=== PATIENT | female | born 1945 | race Caucasian/White ===

== ENCOUNTER 2016-06-17 09:00 | Inpatient (IN) | payer MEDICARE, OTHER ==
[~2016-06-17] VITALS: Ht 162.6 cm; Wt 78.7 kg
--- NOTE | ~2016-06-17 | OR ---
PATIENT'S NAME: MARQUEZ KENDRICK [facility] AGE: 70 Y [address] ROOM: [place] [address] LOCATION: [facility] ADMIT DATE: 06/25/2016 OR/Procedure Report DISCHARGE DATE: FAMILY PHYSICIAN: Linda Rogers APRN ATTENDING PHYSICIAN: TAMIR LEE SURGEON: Tamir Lee MD MEDICAL LABORATORY TECHNICIAN: 1. Omega Barrera CST/SANDRO. 2. Tamir Stevenson. DATE OF PROCEDURE: 06/25/2016 PREOPERATIVE DIAGNOSIS: Left shoulder degenerative joint disease. POSTOPERATIVE DIAGNOSES: 1. Left shoulder degenerative joint disease. 2. Biceps tenosynovitis. PROCEDURES PERFORMED: 1. Left total shoulder arthroplasty. 2. Left shoulder biceps tenodesis. ANESTHESIA: General endotracheal anesthesia plus subcutaneous and periarticular local anesthesia (Exparel and Marcaine with epinephrine). DRAINS: None. SPECIMENS: None. COMPLICATIONS: None. ESTIMATED BLOOD LOSS: Less than 100 mL. IMPLANTS: Biomet JuggerKnot suture anchor x1. Biomet comprehensive standard convertible uncemented glenoid baseplate with 4.75 mm peripheral locking screws x2 and 6.5 mm central screw x1. Standard E1 convertible glenoid polyethylene liner. Biomet comprehensive size 11 mm x 83 mm uncemented humeral component with 46 mm x 18 mm humeral head with 53 mm radius of curvature and standard humeral head taper adapter. INDICATION FOR PROCEDURE: Ms. Kendrick is a 70-year-old female presenting with severe left shoulder glenohumeral degenerative joint disease and associated severely compromised activities of daily living. She has decided to proceed with left total shoulder arthroplasty after having been thoroughly counseled regarding risks, benefits, limitations, and alternatives. We have specifically reviewed risks and implications of infection, neurovascular complications, stiffness, instability, blood transfusion risks, wear, PATIENT'S NAME: MARQUEZ KENDRICK [facility] AGE: 70 Y [address] ROOM: [place] [address] LOCATION: [facility] ADMIT DATE: 06/25/2016 OR/Procedure Report DISCHARGE DATE: FAMILY PHYSICIAN: Linda Rogers APRN ATTENDING PHYSICIAN: TAMIR LEE loosening, persistent pain, and potential need for revision. Informed consent granted. DESCRIPTION OF PROCEDURE: The patient was placed in a modified beachchair position after administration of general endotracheal anesthesia and prophylactic antibiotics. The left shoulder and left upper extremity were prepped and draped with vigilant sterile technique. Examination under anesthesia demonstrated no active skin lesions or masses. There was no instability. Passive forward elevation was limited to 110 degrees. Passive external rotation was limited to 20 degrees. The left shoulder was approached through a standard deltopectoral incision. Subcutaneous tissues were infiltrated with Marcaine with epinephrine. Subcutaneous tissues and periarticular tissues were infiltrated with Exparel prior to wound closure. The deltopectoral interval was identified and was bluntly developed. The cephalic vein was identified and was mobilized laterally with the deltoid and vigilantly protected throughout the entire case. The axillary nerve was identified and was vigilantly protected throughout the entire case. The outer surface of the rotator cuff was pristine. There was a large amount of fluid within the bicipital groove. The bicipital groove was longitudinally exposed with electrocautery. A large amount of benign-appearing translucent synovial fluid decompressed itself through the biceps tendon sheath. There was significant proliferative bicipital tenosynovitis. The biceps was divided at the proximal aspect of the intertubercular groove and tagged for later tenodesis. It should be noted that the tenodesis was accomplished with a 4- strand JuggerKnot suture anchor using locking stitches immediately prior to impacting the final humeral component. There was a moderate-sized osteophyte extending laterally from the medial aspect of the intertubercular groove which was clearly impinging on the biceps tendon. The subscapularis tendon was divided longitudinally with the anterior capsule 1 cm medial to its insertion and tagged with #1 Ethibond for later repair. There was a 1 cm osteophyte projecting inferiorly from the humeral head. There were smaller osteophytes posteriorly and anteroinferiorly. These were all removed. There was full-thickness loss of articular cartilage and multiple small subcortical cysts throughout the glenoid and the humeral head. The humeral head resection was performed with an oscillating saw at 30 degrees of retroversion. The humeral canal was reamed by hand up to a size 11 with tapered conical reamers. The size 11 reamer tightly engaged the endosteal cortex of the proximal humerus. The humerus was subsequently broached up to a size 11. The size 11 broach obtained excellent axial and rotational PATIENT'S NAME: MARQUEZ KENDRICK [facility] AGE: 70 Y [address] ROOM: [place] [address] LOCATION: [facility] ADMIT DATE: 06/25/2016 OR/Procedure Report DISCHARGE DATE: FAMILY PHYSICIAN: Linda Rogers APRN ATTENDING PHYSICIAN: TAMIR LEE. Circumferential glenoid exposure was obtained. Remnants of the glenoid labrum were sharply excised. A central guidewire was placed, and the glenoid was reamed over the guidewire. There was no perforation. The final glenoid baseplate was impacted into position and obtained an excellent press fit. Supplemental fixation was achieved with 2 peripheral locking screws and a central screw. The peripheral locking screws obtained excellent purchase. The central screw obtained mediocre purchase. The glenoid baseplate was thoroughly irrigated and cleansed prior to impacting the glenoid polyethylene into position. Circumferential palpation of the glenoid polyethylene and glenoid baseplate confirmed complete stable seating of the polyethylene. Trial reductions were performed. The above-specified construct restored appropriate soft tissue tension, stability, range of motion, and humeral height. The final humeral component was impacted into position and obtained excellent axial and rotational stability. The trunnion was thoroughly dried, and the humeral head was impacted into position. A final reduction was performed. Excellent stability and range of motion and appropriate humeral height were once again confirmed. The entire incision and entire joint space were thoroughly irrigated with bacteriostatic pulsatile saline lavage at this point as well as several times throughout the case. The subscapularis tendon was repaired with multiple [id number] interrupted #2 Orthocord sutures. Subcutaneous tissues were infiltrated once again prior to being reapproximated with simple deep interrupted 0 Vicryl. The skin was closed with superficial buried interrupted 2-0 Vicryl, followed by a running subcuticular 3-0 Monocryl suture, followed by Dermabond, followed by Steri-Strips with benzoin. The dressing consisted of an occlusive Mepilex dressing. A shoulder immobilizer was placed, and the patient was extubated and transported to the postanesthesia care unit in stable, comfortable condition. PATIENT'S NAME: MARQUEZ KENDRICK [facility] AGE: 70 Y [address] ROOM: [address] [address] LOCATION: [id number] ADMIT DATE: 06/25/2016 OR/Procedure Report DISCHARGE DATE: FAMILY PHYSICIAN: Linda Rogers APRN ATTENDING PHYSICIAN: TAMIR LEE MD NAZIA JOHNSON/modl /[id number] d: 06/25/16 1329 t: 07/02/16 0752, OPERATIVE SUMMARY
--- NOTE | ~2016-06-17 | DS ---
PATIENT'S NAME: MARQUEZ KENDRICK [facility] AGE: 70 Y [address] ROOM: [place] [address] LOCATION: [facility] ADMIT DATE: 06/25/2016 Discharge Summary DISCHARGE DATE: 06/26/2016 FAMILY PHYSICIAN: Linda Rogers APRN ATTENDING PHYSICIAN: Gregorio Walker PRIMARY DIAGNOSIS: Left shoulder degenerative joint disease. SECONDARY DIAGNOSIS: No significant secondary diagnosis. PROCEDURE PERFORMED: Left total shoulder arthroplasty with left shoulder biceps tenodesis. HISTORY: The patient is a 70-year-old female, who presents with advanced left shoulder degenerative joint disease and associated severely compromised activities of daily living. She has decided to proceed with shoulder arthroplasty after having been thoroughly counseled regarding the risks, benefits, limitations, and alternatives. Please refer to her outpatient clinic notes and her admission history and physical. HOSPITAL COURSE: The patient underwent the above specified procedure on 06/25/2016 without complications. General endotracheal anesthesia plus subcutaneous and periarticular local anesthesia was used. She received 24 hours of perioperative prophylactic antibiotics. She remained hemodynamically stable and neurovascularly intact throughout the entire hospital course. On her date of discharge, the incision at the shoulder was healing well and showed no signs of infection. DISPOSITION: Home. DISCHARGE DIET: Regular. DISCHARGE ACTIVITY: She is to remain in a left arm sling time checker. She may remove the sling to perform gentle Codman's exercises 3 to 4 times daily as instructed. There is to be no dressing changes. She is to notify Dr. Walker immediately if she experiences increased pain, fevers, chills, erythema, or drainage. DISCHARGE MEDICATIONS: Dilaudid 2 mg, take 1 to 2 tablets p.o. every 4 hours as needed for pain. FOLLOWUP: Followup appointment is to be with Dr. Walker one week subsequent to dismissal from the hospital for her initial postop evaluation with x-rays of the left shoulder at that time. PATIENT'S NAME: MARQUEZ KENDRICK [facility] AGE: 70 Y [address] ROOM: [place] [address] LOCATION: [facility] ADMIT DATE: 06/25/2016 Discharge Summary DISCHARGE DATE: 06/26/2016 FAMILY PHYSICIAN: Linda Rogers APRN ATTENDING PHYSICIAN: Gregorio Walker MAE CHINO FOR MD KATHLEEN JOHNSON/modl /[id number] d: 07/09/168 t: 07/09/16 0933, DISCHARGE SUMMARY
[2016-06-17] MEDS ORDERED: LIPITOR20 M1 PO (09:23)
[2016-06-17] MEDS ORDERED: LASIX40 MG PO (09:23)
[2016-06-17] MEDS ORDERED: MOBIC7.5 MG PO (09:24)
[2016-06-17] MEDS ORDERED: ULTRAM50 MG PO (09:25)
[2016-06-17] MEDS ORDERED: KLOR-CON M2020 MEQ PO (09:26)
[2016-06-17] MEDS ORDERED: TRIAMTERENE-HC1 EAC1 PO (09:27)
[2016-06-17] MEDS ORDERED: CENTRUM COMPLE1 EACH PO (09:28)
[2016-06-17] MEDS ORDERED: ARTHRITIS PAIN650 MG PO (09:28)
[2016-06-26] MEDS ORDERED: DILAUDID 2MG(HYD2 MG PO (09:25)
[2016-12-24] MEDS ORDERED: TYLENOL PM EX-1 EACH PO (10:57)
== END 2016-06-26 11:50 | disposition disaster alternative care site (69) | DRG 483 ==
LOC: G3N 06-25 06:06
PROVIDERS: ADMIT Orthopaedic Surgery
PROC: 0RRK00Z Replacement of Left Shoulder Joint with Reverse Ball and Socket Synthetic Substitute, Open Approach (ICD-10-PCS; principal; 2016-06-25)
DX: M19.012 Primary osteoarthritis, left shoulder (principal); I10 Essential (primary) hypertension; Z68.28 Body mass index [BMI] 28.0-28.9, adult; E78.5 Hyperlipidemia, unspecified; E66.3 Overweight
CPT/HCPCS: C1713; C1776; C9290; J0690; J1885; J2001; J2250; J3010; J7120